=== PATIENT | male | born 1955 | race Caucasian/White ===

== ENCOUNTER 2020-07-26 18:30 | Emergency (ER) | payer OTHER ==
[~2020-07-26] VITALS: Ht 172.7 cm; Wt 81.6 kg
== END 2020-07-26 19:37 | disposition home or self-care (01) ==
LOC: ER 18:55
DX: S01.81XA Laceration without foreign body of other part of head, initial encounter (principal); W22.8XXA Striking against or struck by other objects, initial encounter; Y92.008 Other place in unspecified non-institutional (private) residence as the place of occurrence of the external cause; I10 Essential (primary) hypertension; E78.5 Hyperlipidemia, unspecified
CPT/HCPCS: 99282